=== PATIENT | female | born 1945 | race Caucasian/White ===

== ENCOUNTER 2017-06-30 17:07 | Emergency (ER) | payer MEDICARE, MEDICAID ==
[~2017-06-30] VITALS: Ht 162.6 cm; Wt 67.0 kg
[~2017-06-30 17:07] MED LIST: ALBU6.7H3 IH; DULO-31 PO; FLUO15OI15 TP; FLUT16SP2 NS; FOLI IV; LAMO100T2 PO; LEVO75TA57 PO; LOP25T PO; LORA1TAB PO; MONT10TA21 PO; OMEP20TA5 PO; PER5325T PO; QUET-1 PO; SIMV20TA5 PO; ZOF4T PO; [UNRECOGNIZED DRUG - OTHER]
[2017-06-30] MEDS ORDERED: fentaNYL/PF 50MCG/1 ML 2ML syringe IV ONE (18:00)
[2017-06-30] MEDS ORDERED: HYDR-569 PO (18:53)
[2017-06-30] MEDS ORDERED: DIPH25CA83 PO (18:53)
[2017-06-30 19:27] VITALS: BP 149/80
== END 2017-06-30 19:33 | disposition home or self-care (01) ==
LOC: ER 17:07
DX: S42.294A Other nondisplaced fracture of upper end of right humerus, initial encounter for closed fracture (principal); J45.909 Unspecified asthma, uncomplicated; G89.29 Other chronic pain; M19.90 Unspecified osteoarthritis, unspecified site; Z88.1 Allergy status to other antibiotic agents; Z88.0 Allergy status to penicillin; Z88.6 Allergy status to analgesic agent; Z88.5 Allergy status to narcotic agent; Z88.8 Allergy status to other drugs, medicaments and biological substances; Z79.899 Other long term (current) drug therapy; Z98.890 Other specified postprocedural states; Z60.2 Problems related to living alone; W01.0XXA Fall on same level from slipping, tripping and stumbling without subsequent striking against object, initial encounter; Y93.89 Activity, other specified; Y92.89 Other specified places as the place of occurrence of the external cause; Y99.8 Other external cause status
CPT/HCPCS: 73030; 99284; A4565; J3010

== ENCOUNTER 2024-01-23 08:31 | Emergency (ER) | payer MEDICARE, MEDICAID ==
[~2024-01-23] VITALS: Ht 160 cm; Wt 69.5 kg
[~2024-01-23 08:31] MED LIST changes: +DIPH25CA83 PO; +HYDR-4383 PO; +MONT-48 PO; -MONT10TA21 PO; +OMEP20TA43 PO; -OMEP20TA5 PO; +SIMV-42 PO; -SIMV20TA5 PO
[2024-01-23 09:05] LABS: EOSINOPHILS # (AUTO) 0.1 X10'3 (0-0.9); HEMATOCRIT 34.1 % (35.0-45.0); MEAN CORPUSCULAR HEMOGLOBIN 30.4 PG (27.0-31.0); MEAN PLATELET VOLUME 8.7 FL (7.4-10.4); MONOCYTES # (AUTO) 0.7 X10'3 (0-0.9); NEUTROPHILS # (AUTO) 0.6 X10'3 (1.8-7.7); RED BLOOD COUNT 3.62 X10'6 (4.20-5.60); WHITE BLOOD COUNT 2.5 X10'3 (4.5-11.0)
[2024-01-23 09:06] LABS: BASOPHILS % (AUTO) 0.4 % (0-1); EOSINOPHILS % (AUTO) 4.6 % (0-6); LYMPHOCYTES % (AUTO) 41.6 % (21-51); MEAN CORPUSCULAR HGB CONC 32.3 g/dL (33.0-36.5); MONOCYTES % (AUTO) 27.7 % (2-12); NEUTROPHILS % (AUTO) 25.7 % (42-75); PLATELET COUNT 135 X10'3 (140-440); RED CELL DISTRIBUTION WIDTH 14.1 % (11.5-14.5)
[2024-01-23 09:22] LABS: ALBUMIN 2.9 G/DL (3.4-5.0); ANION GAP 4 (8-16); BLOOD UREA NITROGEN 12 MG/DL (7-18); BUN/CREATININE RATIO 11.8 (10.0-20.0); CALCIUM 8.6 MG/DL (8.5-10.1); CHLORIDE 106 MMOL/L (99-107); CREATININE 1.02 MG/DL (0.40-0.90); GLUCOSE 98 MG/DL (70-104); MAGNESIUM 2.1 MG/DL (1.5-2.4); PRO BRAIN NATRIURETIC PEPTIDE 225 PG/ML (0-450); SODIUM 139 MMOL/L (135-145); TOTAL CARBON DIOXIDE 29.3 MMOL/L (24-32); eCRCL 38 ML/MIN; eGFR 53 ML/MIN
[2024-01-23 09:23] LABS: POTASSIUM 4.5 MMOL/L (3.5-5.1)
[2024-01-23 09:49] LABS: PLATELET ESTIMATE DECREASED; TOTAL CELLS COUNTED 100
[2024-01-23] MEDS: pantoprazole 40 MG vial IV ONE (11:10)
[2024-01-23 11:11] VITALS: RESP 18
[2024-01-23] MEDS: ondansetron/PF 4mg/2ml inj IV ONE (11:11)
[2024-01-23] MEDS: morphine 2 MG/ML inj. syringe IV ONE (11:11)
[2024-01-23] MEDS ORDERED: PANT20TA18 PO (12:44)
[2024-01-23 13:15] VITALS: BP 138/67; PULSE 84; TEMP 98.1; O2SAT 96
== END 2024-01-23 13:26 | disposition home or self-care (01) ==
LOC: ER 08:32
DX: R07.89 Other chest pain (principal); K21.9 Gastro-esophageal reflux disease without esophagitis; J45.909 Unspecified asthma, uncomplicated; G89.29 Other chronic pain; M54.9 Dorsalgia, unspecified; F32.A Depression, unspecified; M19.90 Unspecified osteoarthritis, unspecified site; Z98.890 Other specified postprocedural states; Z60.2 Problems related to living alone; Z88.0 Allergy status to penicillin; Z88.1 Allergy status to other antibiotic agents; Z88.8 Allergy status to other drugs, medicaments and biological substances; Z85.3 Personal history of malignant neoplasm of breast; Z79.899 Other long term (current) drug therapy
CPT/HCPCS: 36415; 71045; 80048; 83735; 83880; 84484; 85007; 85025; 93005; 96374; 96375; 99285; J2270; J2405; J2470

== ENCOUNTER 2024-04-14 13:09 | Emergency (ER) | payer MEDICAID, MEDICARE ==
[~2024-04-14] VITALS: Ht 160 cm; Wt 72.2 kg
[~2024-04-14 13:09] MED LIST changes: +PANT20TA18 PO
[2024-04-14 13:12] VITALS: TEMP 98.4
[2024-04-14 15:32] LABS: BILIRUBIN,URINE NEGATIVE (Neg); CLARITY,URINE CLEAR (Clear); COLOR,URINE YELLOW (Yellow); GLUCOSE, URINE NEGATIVE (Neg); KETONES,URINE NEGATIVE (Neg); LEUKOCYTE ESTERASE ,URINE NEGATIVE (Neg); NITRITES, URINE NEGATIVE (Neg); OCCULT BLOOD,URINE NEGATIVE (Neg); PROTEIN,URINE NEGATIVE (Neg); UROBILINOGEN,URINE 0.2 E.U/dL (0.2-1.0)
[2024-04-14 15:41] LABS: UA COLLECTION TYPE NON-SPECIFIED
[2024-04-14 15:44] LABS: BASOPHILS % (AUTO) 0.5 % (0-1); EOSINOPHILS # (AUTO) 0.1 X10'3 (0-0.9); EOSINOPHILS % (AUTO) 1.7 % (0-6); HEMATOCRIT 35.4 % (35.0-45.0); HEMOGLOBIN 11.6 g/dl (12.0-16.0); LYMPHOCYTES # (AUTO) 0.8 X10'3 (1.1-4.8); LYMPHOCYTES % (AUTO) 15.9 % (21-51); MEAN CORPUSCULAR HEMOGLOBIN 32.5 PG (27.0-31.0); MEAN CORPUSCULAR HGB CONC 32.8 g/dL (33.0-36.5); MEAN CORPUSCULAR VOLUME 99.3 FL (78-98); MONOCYTES # (AUTO) 0.8 X10'3 (0-0.9); MONOCYTES % (AUTO) 14.7 % (2-12); NEUTROPHILS # (AUTO) 3.5 X10'3 (1.8-7.7); NEUTROPHILS % (AUTO) 67.2 % (42-75); PLATELET COUNT 287 X10'3 (140-440); RED BLOOD COUNT 3.57 X10'6 (4.20-5.60); RED CELL DISTRIBUTION WIDTH 17.3 % (11.5-14.5); WHITE BLOOD COUNT 5.3 X10'3 (4.5-11.0)
[2024-04-14 16:00] LABS: ALANINE AMINOTRANSFERASE 24 U/L (12-78); ALBUMIN 3.1 G/DL (3.4-5.0); ALBUMIN/GLOBULIN RATIO 1.1 (1.1-1.5); ALKALINE PHOSPHATASE 71 IU/L (46-116); ANION GAP 11 (8-16); ASPARTATE AMINO TRANSFERASE 24 U/L (10-37); BILIRUBIN,TOTAL 0.6 MG/DL (0.1-1.0); BLOOD UREA NITROGEN 11 MG/DL (7-18); BUN/CREATININE RATIO 12.1 (10.0-20.0); CALCIUM 8.9 MG/DL (8.5-10.1); CHLORIDE 107 MMOL/L (99-107); CREATININE 0.91 MG/DL (0.40-0.90); GLUCOSE 106 MG/DL (70-104); MAGNESIUM 2.3 MG/DL (1.5-2.4); POTASSIUM 4.2 MMOL/L (3.5-5.1); SODIUM 144 MMOL/L (135-145); TOTAL CARBON DIOXIDE 26.3 MMOL/L (24-32); eCRCL 42 ML/MIN; eGFR 60 ML/MIN
[2024-04-14] MEDS: CefTRIAXone 1000mg IM Kit (w/lidocaine diluent) IM ONE (17:35)
[2024-04-14] MEDS ORDERED: CEPH-585 PO (18:09)
[2024-04-14 18:17] VITALS: BP 162/78; PULSE 85; RESP 16; O2SAT 94
== END 2024-04-14 18:18 | disposition home or self-care (01) ==
LOC: ER 13:10
DX: L03.114 Cellulitis of left upper limb (principal); J45.909 Unspecified asthma, uncomplicated; M19.90 Unspecified osteoarthritis, unspecified site; F32.A Depression, unspecified; G89.29 Other chronic pain; M54.9 Dorsalgia, unspecified; Z98.890 Other specified postprocedural states; Z60.2 Problems related to living alone; Z85.3 Personal history of malignant neoplasm of breast; Z88.1 Allergy status to other antibiotic agents; Z88.0 Allergy status to penicillin; Z88.8 Allergy status to other drugs, medicaments and biological substances; Z88.5 Allergy status to narcotic agent; Z88.6 Allergy status to analgesic agent; Z79.899 Other long term (current) drug therapy
CPT/HCPCS: 36415; 80053; 81003; 83605; 83735; 84145; 85025; 87040; 96372; 99283; J0696

== ENCOUNTER 2024-04-28 11:16 | Outpatient (CLI) | payer MEDICARE, MEDICAID ==
[~2024-04-28 11:16] MED LIST changes: +CEPH-585 PO
== END 2024-04-28 23:59 | disposition home or self-care (01) ==
LOC: VAS 11:16
PROVIDERS: ATTEND Surgery
DX: C50.611 Malignant neoplasm of axillary tail of right female breast (principal); R22.42 Localized swelling, mass and lump, left lower limb
CPT/HCPCS: 93971

== ENCOUNTER 2025-01-31 20:41 | Emergency (ER) | payer MEDICARE, MEDICAID ==
[~2025-01-31] VITALS: Ht 157.5 cm; Wt 71.9 kg
--- NOTE | 2025-01-31 21:36 | RADIOLOGY REPORT ---
CLINICAL INDICATION: FALL RIGHT TECHNIQUE: 4 views DI FOREARM,INCL.ONE JOINT Comparison: None FINDINGS: Subtle cortical irregularity of the radial neck with suggested small joint effusion. No additional identified fracture, with diffuse osteopenia. The elbow and wrist joints are congruent. No significant soft tissue swelling. IMPRESSION: 1. Questionable nondisplaced right radial head fracture and joint effusion, correlate with physical exam and consider dedicated elbow radiographs for further assessment.
--- NOTE | 2025-01-31 22:26 | Physician Documentation ---
History of Present Illness ~ Chief Complaint: Mechanical Fall Stated Complaint: FALL Time Seen by MD: 22:24 Primary Medical Doctor: GERARD Mode of Arrival: EMS HPI Patient presents to the emergency room for evaluation of right arm pain status post fall. She states she was walking in her house tripped on a rug fell onto her arm in knee. She states she would not go all the way down. Denies head strike. Complaining of right arm pain. Mild left knee pain ambulating without issue. Tetanus within 5 Years?: No Medication Reconciliation Allergies: Coded Allergies: levofloxacin (Verified Allergy, Intermediate, RASH, 04/09/12) rosuvastatin (Verified Allergy, Intermediate, 04/09/12) Penicillins (Unverified Allergy, Unknown, 06/02/14) Pentazocine Lactate (Unverified Allergy, Unknown, 06/02/14) aspirin (Verified Allergy, Unknown, 08/25/11) naproxen sodium (Unverified Allergy, Unknown, 06/02/14) VOMITING, DIARRHEA, REDNESS, TINGLING rifampin (Verified Allergy, Unknown, 04/09/12) codeine (Unverified Adverse Reaction, Unknown, HEADACHE, 06/02/14) erythromycin base (Unverified Adverse Reaction, Unknown, 06/02/14) SEVERE GASTRIC PAIN meperidine HCl (Unverified Adverse Reaction, Unknown, ITCHING, 06/02/14) metronidazole (Verified Adverse Reaction, Unknown, GI, 06/02/14) morphine (Unverified Adverse Reaction, Unknown, ITCHING, 06/02/14) Uncoded Allergies: ANTI INFLAMMATORIES (Allergy, Unknown, 06/02/14) Scheduled Cephalexin*Monohydrate* (Keflex*), 1 CAP PO QID Duloxetine Hcl* (Cymbalta*), 30 MG PO DAILY, (Reported) Duloxetine Hcl* (Cymbalta*), 60 MG PO DAILY, (Reported) Fluocinonide Oint* (Lidex Oint*), 1 APPLIC TP DAILY, (Reported) Lamotrigine* (Lamictal*), 100 MG PO BID, (Reported) Lamotrigine* (Lamictal*), 100 MG PO BID, (Reported) Levothyroxine Sodium* (Levoxyl*), 75 MCG PO DAILY, (Reported) Lorazepam* (Ativan*), 2 MG PO HS, (Reported) Metoprolol Tartrate* (Lopressor*), 25 MG PO BID, (Reported) Ondansetron ODT* (Zofran ODT*), 8 MG PO Q6H Pantoprazole Sodium (Protonix), 1 TAB PO DAILY Quetiapine Fumarate* (Seroquel*), 100 MG PO DAILY, (Reported) Simvastatin* (Zocor*), 20 MG PO HS, (Reported) Scheduled PRN Diphenhydramine Hcl (Benadryl), 1 CAP PO Q6H PRN PRN for itching Hydrocodone/Acetaminophen ([place] 5-325 Tablet), 1-2 TAB PO Q6H PRN PRN for pain Montelukast Sodium (Singulair), 10 MG PO DAILY PRN, (Reported) Oxycodone Hcl/Acetaminophen 5/325 MG* (Percocet 5/325 MG*), 1 TAB PO Q6H PRN, (Reported) Miscellaneous Medications Albuterol Sulfate (Proventil Hfa), 6.7 GM IH, (Reported) Fluticasone Propionate (Flonase), 16 GM NS, (Reported) Folic Acid (Folic Acid), 1 MG IV, (Reported) Omeprazole (Omeprazole), 20 MG PO, (Reported) [B12in Luke], (Reported) Past Medical History Past Medical History: Asthma, Chronic Back Pain, Osteoarthritis, Depression Past Surgical History: orthopedic surgeries Alcohol Use: None Drug Use: none Lives with: Alone Lives In: Home Review of Systems ROS All review of systems negative except as per HPI Physical Exam Vital Signs: Temperature: 98.2, Source: Oral, Heart Rate: 79, Respiratory Rate: 16, BP: 171/89, Pulse Oximetry: 96, Weight: 71.900 Oxygen Flow Rate: 0 Physical Exam General: Patient is awake, alert, oriented x4 in no acute distress Head: Normocephalic and atraumatic. Eyes: Conjunctival normal. EOMI. PERRL. ENT: Mucous membranes moist. Neck: Supple, trachea is midline. Chest: Clear to auscultation bilaterally without rales, rhonchi, or wheezes. There is no accessory muscle use or retractions. Cardiac: RRR without murmurs, gallops, or rubs. Extremities: Tenderness to palpation to mid right forearm. Neurovascularly intact bilaterally Progress Results/Orders Results/Orders Orders - SHENG EDDY MD Forearm,Incl.One Joint (01/31/25 21:15) Ortho Orders (01/31/25 22:33) Completed Orders - SHENG EDDY MD Forearm,Incl.One Joint (01/31/25 21:15) Vital Signs 01/31/25 01/31/25 01/31/25 20:49 20:55 21:04 Temp 98.2 Pulse 79 79 Resp 16 16 16 B/P (MAP) 189/80 171/89 (116) Pulse Ox 95 96 O2 Flow Rate 0 0 Medical Decision Making Additional information obtaine: old records Findings Patient presents to the emergency room with right arm pain status post fall. X- ray is reassuring. Suspect soft tissue injury. Patient placed in his splint in his neurovascularly intact status post splint placement. Discussed with her the need to follow up with her doctor in one-week if symptoms fail to improve. Patient has multiple allergies and takes pain medication and I will not be given her additional pain medication. Differential Dx:Considerations: Include: Closed head injury, Cardiac injury, Fracture(s), Intraabdominal injury, Pneumothorax, Cerebral contusion, Pulmonary contusion, Spine injury, Tracheal injury, Urological injury, Vascular injury, Abrasion(s), Contusion(s), Foreign body(s), Hematoma(s), Laceration(s), Encephalopathy, Other Departure Disposition: 01 HOME / SELF CARE / HOMELESS Impression: Primary Impression: Arm pain Condition: Stable Discharge Instructions: Fall Prevention in the Home, Adult, [id number] Additional Instructions: Ice may be of benefit. Follow up with your doctor for additional pain managemen t should this be needed Referrals: NO PRIMARY CARE PROVIDER (PCP) Signature Scribe Signature: No scribe Attestation: The note accurately reflects work and decisions made by me.Sheng Eddy MD 01/31/25 22:32 SHENG EDDY MD Jan 31, 2025 22:26
[2025-01-31 22:59] VITALS: BP 188/85; PULSE 79; RESP 16; TEMP 98.2; O2SAT 97
== END 2025-01-31 23:02 | disposition home or self-care (01) ==
LOC: ER 20:42
DX: M79.601 Pain in right arm (principal); J45.909 Unspecified asthma, uncomplicated; G89.29 Other chronic pain; M19.90 Unspecified osteoarthritis, unspecified site; F32.A Depression, unspecified; Z98.890 Other specified postprocedural states; Z79.899 Other long term (current) drug therapy; Z60.2 Problems related to living alone; Z88.1 Allergy status to other antibiotic agents; Z88.6 Allergy status to analgesic agent; Z88.0 Allergy status to penicillin; Z88.5 Allergy status to narcotic agent; Z88.8 Allergy status to other drugs, medicaments and biological substances; W18.09XA Striking against other object with subsequent fall, initial encounter; Y93.01 Activity, walking, marching and hiking; Y92.009 Unspecified place in unspecified non-institutional (private) residence as the place of occurrence of the external cause; Y99.8 Other external cause status
CPT/HCPCS: 73090; 99284; A4565